=== PATIENT | female | born 1995 | race American Indian/Alaskan Native ===

== ENCOUNTER 2020-06-26 21:41 | Emergency (ER) | payer MEDICAID ==
[2020-06-26 22:45] VITALS: BP 113/85
[2020-06-26] MEDS ORDERED: IBUPROFEN 600 MG TAB PO ONE (22:54)
[2020-06-26] MEDS ORDERED: ACETAMINOPHEN 500 MG TAB PO ONE (22:54)
--- NOTE | 2020-06-26 22:58 | Emergency Department Report ---
ED General Adult HPI - General Chief complaint: Extremity Injury, Lower Stated complaint: LT FOOT SMASHED Time Seen by Provider: 06/26/20 22:50 Source: patient Mode of arrival: Ambulatory Limitations: No Limitations - History of Present Illness Initial comments: 24-year-old female patient presents to the emergency department with complaints of traumatic right foot pain starting today. Patient states that she was attempting to carry a television when she accidentally dropped it onto the top of her right foot. There is no subsequent fall, head injury, or loss of consciousness. Patient has been ambulatory since the injury. She has not taken any medications prior to arrival. No history of prior injuries to the right foot. Denies hip pain, leg pain, knee pain, ankle pain, paresthesias, numbness. Denies all other complaints at this time. - Related Data Previous Rx's Medication Instructions Recorded Last Taken Type Naproxen 500 mg PO BID #20 tablet 06/26/20 Unknown Rx Allergies Allergy/AdvReac Type Severity Reaction Status Date / Time propanolol Allergy Hives Uncoded 06/26/20 22:45 ED Review of Systems ROS: Stated complaint: LT FOOT SMASHED Other details as noted in HPI Other: CARDIOVASCULAR: Negative for chest pain. PULMONARY: Negative for dyspnea. GASTROINTESTINAL: Negative for abdominal pain. MUSCULOSKELETAL: Positive for right foot pain. NEUROLOGICAL: Negative for headache. INTEGUMENTARY: Negative for ecchymosis. ED Past Medical Hx - Past Medical History Previous Medical History?: Yes Additional medical history: Graves Disease - Surgical History Past Surgical History?: No - Social History Smoking Status: Never Smoker Substance Use Type: None - Medications Home Medications: Home Medications Medication Instructions Recorded Confirmed Last Taken Type Naproxen 500 mg PO BID #20 tablet 06/26/20 Unknown Rx ED Physical Exam - General Limitations: No Limitations - Other Other exam information: General: Awake, appropriately interactive, no acute distress. Neck: Supple. Full range of motion intact. Cardiovascular: Normal peripheral perfusion. Pulmonary: No respiratory distress. Patient is speaking normally without use of accessory muscles. Skin: No apparent rashes or lesions. Neurological: No facial asymmetry. Speech is clear. Follows commands. Patient is alert and oriented. Musculoskeletal: Tenderness to palpation along the lateral aspect of the dorsum of the right foot including the distribution of the navicular bone. No obvious deformity, dislocation, or discoloration. Range of motion intact in all directions. Able to bear weight. No malleolar tenderness. Distal neurovascular and motor/sensory function is intact. Psych: Cooperative. Appropriate mood and affect. ED Course Vital Signs 06/26/20 06/26/20 22:40 23:07 Temperature 98.2 F Pulse Rate 80 Respiratory 16 16 Rate Blood Pressure 113/85 O2 Sat by Pulse 100 Oximetry ED Medical Decision Making - Medical Decision Making Differential diagnosis including but not limited to: sprain, strain, fracture, contusion, dislocation Patient presents to the emergency department complains of traumatic right foot pain starting today. Distal neurovascular and motor/sensory function are intact. She is ambulatory without assistance. Clinically significant fracture cannot be ruled out using Montgomery foot rules due to presence of navicular tenderness. X-rays of the foot without acute process. History and exam findings consistent with soft tissue injury. Patient will be discharged home with Hussain wrap and appropriate analgesics. She expressed understanding and is agreeable to plan of care. RICE precautions discussed. Strict return precautions provided. Repeat exam is unremarkable and benign. History, exam, diagnostic testing, and current condition do not suggest worrisome pathology to warrant further testing, continued ED treatment, admission, or surgical evaluation at this point. Given the low probability of a significant medical illness, it would be more likely to result in harm than benefit to perform further testing at this stage. Discussed findings, presumptive diagnosis, need for follow-up and specific signs/symptoms that should prompt immediate return to the emergency department. Instructions were explained in detail to the patient in addition to giving written discharge information. Patient expressed understanding and was given the opportunity to ask questions, all of which were satisfactorily answered prior to discharge home. Critical care attestation.: If time is entered above; I have spent that time in minutes in the direct care of this critically ill patient, excluding procedure time. ED Disposition Clinical Impression: Contusion of right foot Qualifiers: Encounter type: initial encounter Qualified Code(s): S90.31XA - Contusion of right foot, initial encounter Disposition: TO HOME OR SELFCARE Is pt being admited?: No Does the pt Need Aspirin: No Condition: Stable Instructions: Contusion, [id number] Additional Instructions: Take Tylenol every 4 hours as needed for pain. Take Naprosyn twice daily with food as needed for pain. Wear Hussain wrap as directed. Apply ice to affected area as needed to reduce swelling. Keep right foot elevated as often as possible to reduce swelling. Gradually advance physical activity slowly as tolerated. Follow-up with your primary care provider within 1 week. Call Monday to schedule appointment. Return to the emergency department immediately for new or worsening symptoms. Prescriptions: Naproxen 500 mg PO BID #20 tablet Referrals: ANNIE BROWN MD [Primary Care Provider] - 3-5 Days Time of Disposition: 23:40
--- NOTE | 2020-06-26 23:34 | XRay Report ---
XR foot 3+V RT INDICATION / CLINICAL INFORMATION: right foot pain. COMPARISON: None available. FINDINGS: No acute fracture. Normal alignment. Joint spaces are preserved. No destructive osseous lesion or s uspicious periosteal reaction. Impression: 1.No acute abnormality. Signer Name: Naldo Austin MD Signed: 06/26/2020 11:30 PM Workstation Name: [id number]
== END 2020-06-26 23:49 | disposition home or self-care (01) ==
LOC: ED 21:41
DX: S90.31XA Contusion of right foot, initial encounter (principal); Z79.899 Other long term (current) drug therapy; Z88.8 Allergy status to other drugs, medicaments and biological substances; W04.XXXA Fall while being carried or supported by other persons, initial encounter; Y93.89 Activity, other specified; Y92.89 Other specified places as the place of occurrence of the external cause; Y99.8 Other external cause status

== ENCOUNTER 2020-12-18 19:56 | Emergency (ER) | payer MEDICAID ==
[2020-12-18 20:35] VITALS: BP 130/80
--- NOTE | 2020-12-18 22:04 | Emergency Department Report ---
ED General Adult HPI - General Chief complaint: Skin Rash Stated complaint: SPIDER BITE Time Seen by Provider: 12/18/20 21:49 Source: patient Mode of arrival: Ambulatory Limitations: No Limitations - History of Present Illness Initial comments: 25-year-old female patient (12 weeks gestation) presents to the emergency department with complaints of a painful rash to her left lower back starting 2 days ago. No new foods, medications, or environmental/occupational exposures. No medications prior to arrival. No history of similar symptoms. Denies fever, chills, abnormal bleeding/bruising, shortness of breath, abdominal pain, vaginal bleeding. Denies all other complaints at this time. - Related Data Previous Rx's Medication Instructions Recorded Last Taken Type Naproxen 500 mg PO BID #20 tablet 06/26/20 Unknown Rx Acyclovir [Zovirax Tab] 800 mg PO 5XD 7 Days tab 12/18/20 Unknown Rx Metoclopramide [Reglan] 10 mg PO TID 7 Days tab 12/18/20 Unknown Rx Allergies Allergy/AdvReac Type Severity Reaction Status Date / Time propanolol Allergy Hives Uncoded 06/26/20 22:45 ED Review of Systems ROS: Stated complaint: SPIDER BITE Other details as noted in HPI Other: GENERAL: Negative for fever, chills, weight change, anorexia, fatigue. ENT: Negative for ear pain, difficulty hearing, sore throat, nasal congestion, epistaxis. CARDIOVASCULAR: Negative for chest pain, palpitations, lower extremity swelling. PULMONARY: Negative for cough, dyspnea, wheezing, orthopnea, cyanosis. GASTROINTESTINAL: Positive for nausea. MUSCULOSKELETAL: Negative for joint pain, joint swelling, myalgias, back pain, neck pain. NEUROLOGICAL: Negative for headache, seizure, syncope, paresthesias, weakness. INTEGUMENTARY: Positive for rash. HEMATOLOGICAL: Negative for hemoptysis, hematemesis, hematochezia, hematuria. PSYCHIATRIC: Negative for hallucinations, suicidal ideation, homicidal ideation, anxiety, depression. ED Past Medical Hx - Past Medical History Previous Medical History?: Yes Additional medical history: Graves Disease - Surgical History Past Surgical History?: No Additional Surgical History: c section - Social History Smoking Status: Never Smoker Substance Use Type: None - Medications Home Medications: Home Medications Medication Instructions Recorded Confirmed Last Taken Type Naproxen 500 mg PO BID #20 tablet 06/26/20 Unknown Rx Acyclovir [Zovirax Tab] 800 mg PO 5XD 7 Days tab 12/18/20 Unknown Rx Metoclopramide [Reglan] 10 mg PO TID 7 Days tab 12/18/20 Unknown Rx ED Physical Exam - General Limitations: No Limitations - Other Other exam information: General: Awake, appropriately interactive, no acute distress. Neck: Supple. Full range of motion intact. Cardiovascular: Normal peripheral perfusion. Pulmonary: No respiratory distress. Patient is speaking normally without use of accessory muscles. Skin: Papulovesicular rash on an erythematous base to the left of midline along the T12 nerve root distribution posteriorly with significant overlying tenderness. Neurological: No facial asymmetry. Speech is clear. Follows commands. Patient is alert and oriented. Musculoskeletal: Moves all four extremities spontaneously with normal range of motion. Psych: Cooperative. Appropriate mood and affect. ED Course Vital Signs 12/18/20 20:32 Temperature 98.6 F Pulse Rate 80 Respiratory 18 Rate Blood Pressure 130/80 O2 Sat by Pulse 100 Oximetry ED Medical Decision Making - Medical Decision Making Differential diagnosis including but not limited to: herpes zoster, cellulitis, abscess, insect envenomation, herpes simplex, allergic reaction Patient presents to the emergency department with signs/symptoms consistent of uncomplicated herpes zoster, onset < 72 hours earlier. Patient is 12 weeks . She will be treated with Acyclovir per current UpToDate guidelines and instructed to follow-up with her rag baler this week. Requested antiemetics to accompany antiviral medication due to the frequent dosing required. Patient expressed understanding and is agreeable to plan of care. Strict return precautions provided. The patient is alert and well appearing. There are no petichiae or purpura, no mucous membrane lesions, and no bullae. The patient is without findings concerning for worrisome systemic illness requiring further treatment, additional testing, admission, or specialist consultation at this time. Additional testing is not indicated at this time, but should be considered if symptoms worsen or recur. Discussed findings, presumptive diagnosis, need for follow-up and specific signs/symptoms that should prompt immediate return to the emergency department. Instructions were explained in detail to the patient in addition to giving written discharge information. Patient expressed understanding and was given the opportunity to ask questions, all of which were satisfactorily answered prior to discharge home. Critical care attestation.: If time is entered above; I have spent that time in minutes in the direct care of this critically ill patient, excluding procedure time. ED Disposition Clinical Impression: Herpes zoster Qualifiers: Herpes zoster complications: without complications Qualified Code(s): B02.9 - Zoster without complications Disposition: HOME / SELF CARE / HOMELESS Is pt being admited?: No Does the pt Need Aspirin: No Condition: Stable Instructions: Shingles, [id number] Additional Instructions: Take Tylenol every 4 hours as needed for pain. Take Reglan as directed for nausea/vomiting. Take Acyclovir as directed. Follow-up with your rag baler this week. Call Monday to schedule appointment. Return to the emergency department immediately for new or worsening symptoms. Specifically, return to the emergency department immediately for fever, worsening rash, difficulty breathing, abnormal bleeding/bruising, vision changes, hearing changes, headache, seizure, or any other concerns. Prescriptions: Metoclopramide [Reglan] 10 mg PO TID 7 Days tab Acyclovir [Zovirax Tab] 800 mg PO 5XD 7 Days tab Referrals: [facility] [Provider Group] - 3-5 Days Time of Disposition: 22:07
== END 2020-12-18 23:17 | disposition home or self-care (01) ==
LOC: ED 19:56
DX: O26.891 Other specified pregnancy related conditions, first trimester (principal); B02.9 Zoster without complications; Z3A.12 12 weeks gestation of pregnancy; Z88.8 Allergy status to other drugs, medicaments and biological substances; Z86.39 Personal history of other endocrine, nutritional and metabolic disease
CPT/HCPCS: 99282